=== PATIENT | female | born 2000 | race Caucasian/White ===

== ENCOUNTER 2023-03-07 16:10 | Emergency (ER) | payer OTHER, SELFPAY ==
--- NOTE | 2023-03-07 17:52 | EDPHYS ---
Physician Documentation [facility] Name: Zulema Aguila Age: 22 yrs Sex: Female : 2000 Arrival Date: 03/07/2023 Time: 16:10 Bed IW1 Private MD: ED Physician Jose Sharma HPI: 03/07 16:30 This 22 yrs old Female presents to ER via Ambulatory with complaints of Shortness Of jh7 Breath, Chest Pain, Cough, Hot Flashes, Sweats. 16:30 22-year-old female complains of cough, chest tightness, shortness of breath, chills, jh7 and sore throat for the past 2 days. No past medical history.. Historical: - Allergies: 16:27 Vancomycin; rs5 - PMHx: 16:27 None; rs5 - PSHx: 16:27 None; rs5 - Immunization history:: Adult Immunizations up to date. - Social history:: Smoking status: Reported history of juuling and/or vaping. ROS: 16:30 Eyes: Negative for injury, pain, redness, and discharge, Neck: Negative for injury, jh7 pain, and swelling, Cardiovascular: Negative for chest pain, palpitations, and edema, Respiratory: Negative for shortness of breath, cough, wheezing, and pleuritic chest pain, Abdomen/GI: Negative for abdominal pain, nausea, vomiting, diarrhea, and constipation, Back: Negative for injury and pain, MS/Extremity: Negative for injury and deformity, Skin: Negative for injury, rash, and discoloration, Neuro: Negative for headache, weakness, numbness, tingling, and seizure, 16:30 Constitutional: Positive for body aches, chills, 16:30 ENT: Positive for nasal discharge, sinus congestion, sore throat, 16:30 Respiratory: Positive for cough, shortness of breath, Negative for wheezing, 16:30 All other systems are negative, Exam: 16:30 Constitutional: This is a well developed, well nourished patient who is awake, alert, jh7 and in no acute distress. Head/Face: Normocephalic, atraumatic. Neck: Trachea midline, no thyromegaly or masses palpated, and no cervical lymphadenopathy. Supple, full range of motion without nuchal rigidity, or vertebral point tenderness. No Meningismus. Cardiovascular: Regular rate and rhythm with a normal S1 and S2. No gallops, murmurs, or rubs. Normal PMI, no JVD. No pulse deficits. Respiratory: Lungs have equal breath sounds bilaterally, clear to auscultation and percussion. No rales, rhonchi or wheezes noted. No increased work of breathing, no retractions or nasal flaring. Abdomen/GI: Soft, non-tender, with normal bowel sounds. No distension or tympany. No guarding or rebound. No evidence of tenderness throughout. Skin: Warm, dry with normal turgor. Normal color with no rashes, no lesions, and no evidence of cellulitis. MS/ Extremity: Pulses equal, no cyanosis. Neurovascular intact. Full, normal range of motion. Neuro: Awake and alert, GCS 15, oriented to person, place, time, and situation. Motor strength 5/5 in all extremities. Sensory grossly intact. Normal gait. 16:30 ENT: Posterior pharynx: erythema, that is mild, pooling of secretions, that are mild, Vital Signs: 16:27 BP 114 / 77; Pulse 67; Resp 17; Temp 97.8(TE); Pulse Ox 99% ; rs5 17:00 BP 110 / 78; Pulse 72; Resp 18; Temp 97.8(O); Pulse Ox 99% ; rs5 MDM: 16:17 Patient medically screened. [facility] 17:35 Differential diagnosis: Influenza, strep pharyngitis, COVID, upper respiratory 7 infection, bronchitis. Antibiotic administration: Not indicated, the patient has a suspected viral illness. Data interpreted: Pulse oximetry: is 99 %. Interpretation: normal. Data reviewed: vital signs, nurses notes. Counseling: I had a detailed discussion with the patient and/or guardian regarding the historical points, exam findings, and any diagnostic results supporting the discharge/admit diagnosis, to return to the emergency department if symptoms worsen or persist or if there are any questions or concerns that arise at home. 03/07 16:28 Order name: Strep [facility] 03/07 16:28 Order name: Flu; Complete Time: 17:22 [facility] 03/07 16:28 Order name: SARS-COV-2 RT PCR; Complete Time: 17:31 [facility] 03/07 17:13 Order name: Throat Culture EDMS Administered Medications: No medications were administered Disposition Summary: 03/07/23 17:52 Discharge Ordered Notes: Location: Home [facility] Problem: new [facility] Symptoms: are unchanged [facility] Condition: Stable [facility] Diagnosis - Influenza due to identified novel influenza A virus with other respiratory [facility] manifestations Followup: [facility] - With: Private Physician - When: 2 - 3 days - Reason: Recheck today's complaints Discharge Instructions: - Discharge Summary Sheet [facility] - Influenza, Adult [facility] Forms: - Medication Reconciliation Form [facility] - Thank You Letter [facility] - Patient Portal Instructions [facility] - Leadership Thank You Letter [facility] - Work release form rs5 Prescriptions: - Bromfed DM 2-30-10 mg/5 mL Oral syrup - administer 5 milliliter ORAL route every 4 to 6 hours As needed; 240 jh7 milliliter; Refills: 0, Product Selection Permitted - albuterol sulfate 90 mcg/actuation Inhalation HFA Aerosol Inhaler - inhale 1 inhalation INHALATION route every 4 to 6 hours As needed as needed for [facility] bronchospasm; administer via ventilator; 1 Each; Refills: 0, Product Selection Permitted - Tamiflu 75 mg Oral Capsule - take 1 capsule ORAL route every 12 hours for 5 days; 10 capsule; Refills: 0, jh7 Product Selection Permitted Signatures: Dispatcher [employer] Allyson Sarmiento, HOME STAGER HOME STAGER [facility] Norman Robb RN RN rs5 Corrections: (The following items were deleted from the chart) 16:28 16:27 PSHx: Unable to Obtain; rs5 rs5
--- NOTE | 2023-03-07 17:52 | ER ---
Nurse's Notes [facility] Name: Zulema Aguila Age: 22 yrs Sex: Female : 2000 Arrival Date: 03/07/2023 Time: 16:10 Bed IW1 Private MD: Diagnosis: Influenza due to identified novel influenza A virus with other respiratory manifestations Presentation: 03/07 16:26 Chief complaint: Patient states: "I've been having a cough, sore throat, sob, that rs5 started two days ago". Coronavirus screen: At this time, the client does not indicate any symptoms associated with coronavirus-19. Ebola Screen: No symptoms or risks identified at this time. Onset of symptoms was March 05, 2023. 16:26 Method Of Arrival: Ambulatory rs5 16:27 Initial Sepsis Screen: Does the patient meet any 2 criteria? No. Patient's initial rs5 sepsis screen is negative. Does the patient have a suspected source of infection? No. Patient's initial sepsis screen is negative. Risk Assessment: Do you want to hurt yourself or someone else? Patient reports no desire to harm self or others. 16:27 Acuity: AYSE 4 rs5 Triage Assessment: 16:50 General: Appears in no apparent distress. comfortable, Behavior is calm, cooperative. rs5 16:50 Respiratory: Reports pain with cough Pain is 2 out of 10 on a pain scale. Onset: The rs5 symptoms/episode began/occurred at an unknown time. the patient has mild shortness of breath. Historical: - Allergies: 16:27 Vancomycin; rs5 - PMHx: 16:27 None; rs5 - PSHx: 16:27 None; rs5 - Immunization history:: Adult Immunizations up to date. - Social history:: Smoking status: Reported history of juuling and/or vaping. Screenin:50 [facility] ED Fall Risk Assessment (Adult) History of falling in the last 3 months, rs5 including since admission No falls in past 3 months (0 pts) Confusion or Disorientation No (0 pts) Intoxicated or Sedated No (0 pts) Impaired Gait No (0 pts) Mobility Assist Device Used No (0 pt) Altered Elimination No (0 pt) Score/Fall Risk Level 0 - 2 = Low Risk Oriented to surroundings, Maintained a safe environment. Abuse screen: Denies threats or abuse. Nutritional screening: No deficits noted. Tuberculosis screening: No symptoms or risk factors identified. Assessment: 16:50 General: Appears in no apparent distress. comfortable, Behavior is calm, cooperative. rs5 16:50 Pain: Denies pain. Neuro: Level of Consciousness is awake, alert, obeys commands, rs5 Oriented to person, place, time, situation. Cardiovascular: Heart tones S1 S2 present Rhythm is regular. Respiratory: Reports pain with cough Pain is 2 out of 10 on a pain scale. Airway is patent Respiratory effort is even, unlabored, Breath sounds are clear bilaterally. GI: Abdomen is flat, non-distended, Abd is soft and non tender X 4 quads. Patient currently denies nausea, vomiting. : No signs and/or symptoms were reported regarding the genitourinary system. EENT: No signs and/or symptoms were reported regarding the EENT system. Derm: Skin is intact, Skin is pink, warm \\T\\ dry. Musculoskeletal: Range of motion: intact in all extremities. Vital Signs: 16:27 BP 114 / 77; Pulse 67; Resp 17; Temp 97.8(TE); Pulse Ox 99% ; rs5 17:00 BP 110 / 78; Pulse 72; Resp 18; Temp 97.8(O); Pulse Ox 99% ; rs5 ED Course: 16:15 Patient arrived in ED. mg5 16:17 Allyson Cohen FNP [facility] jh7 16:17 Jose Sharma MD is Attending Physician. jh7 16:32 Triage completed. rs5 16:50 Patient has correct armband on for positive identification. Bed in low position. Call rs5 light in reach. Side rails up X2. 16:50 Arm band placed on right wrist. rs5 18:43 No provider procedures requiring assistance completed. Patient did not have IV access rs5 during this emergency room visit. Administered Medications: No medications were administered Medication: 18:43 VIS not applicable for this client. rs5 Outcome: 17:52 Discharge ordered by . jh7 18:43 Patient left the ED. aa5 18:43 Discharged to home ambulatory, with friend, rs5 18:43 Condition: stable 18:43 Discharge instructions given to patient, Instructed on discharge instructions, follow up and referral plans. medication usage, Demonstrated understanding of instructions, follow-up care, medications, Prescriptions given X 1, Signatures: Stein, Emma, RN RN aa5 Allyson Cohen, CLINICAL RESEARCH SPECIALIST CLINICAL RESEARCH SPECIALIST jh7 Norman Robb RN RN rs5 Fior Pantoja mg5 Corrections: (The following items were deleted from the chart) 16:28 16:27 PSHx: Unable to Obtain; rs5 rs5
[2023-03-07 19:04] VITALS: BP 114/77; TEMP 97.8; O2SAT 99
== END 2023-03-07 18:43 | disposition home or self-care (01) ==
LOC: ER 16:10
DX: J10.1 Influenza due to other identified influenza virus with other respiratory manifestations (principal); Z88.3 Allergy status to other anti-infective agents
CPT/HCPCS: 87070; 87081; 87635; 87804; 99283